=== PATIENT | male | born 2000 | race Two or more races ===

== ENCOUNTER 2020-08-25 22:18 | Emergency (ER) | payer SELFPAY ==
--- NOTE | 2020-08-25 22:50 | EDM.PDOC ---
ED HPI GENERAL MEDICAL PROBLEM - General Chief Complaint: Lower Extremity Injury/Pain Stated Complaint: INJURED LEFT ANKLE Time Seen by Provider: 08/25/20 22:29 Source of Information: Reports: Patient, Significant Other (Girlfriend + child) History Limitations: Reports: No Limitations - History of Present Illness INITIAL COMMENTS - FREE TEXT/NARRATIVE: Mr. Hayes is a very pleasant 19-year-old man who now presents the ED with left ankle pain and swelling. He states that he twisted his left ankle about 2 weeks ago. It got better, but then he twisted it again about 2 days ago, while at work. Since then, he has been treating the ankle with IcyHot and ibuprofen 400 mg po BID. He has not applied ice to the ankle. He complains of pain with ambulation. No prior left ankle injury. Here in the ED, the patient's initial BP is found to be modestly elevated at 157/95, otherwise, he is hemodynamically stable, afebrile, saturating 99% on room air. He appears to be uncomfortable, but in no acute distress. Other than left ankle pain, the patient denies having a recent fever, chills, sore throat, ear pain, nasal or sinus congestion, cough, dyspnea, chest pain, palpitations, nausea, vomiting, constipation, diarrhea, abdominal pain, urinary symptoms, recent weight gain or weight loss, recent bloody bowel movements or black bowel movements, headaches, or rashes. The patient does not have a PCP. Left Ankle Pain Score (Numeric/FACES): 10 - Related Data Allergies Allergy/AdvReac Type Severity Reaction Status Date / Time No Known Allergies Allergy Verified 08/25/20 22:54 Home Meds: Home Meds . [No Known Home Meds] 08/25/20 [History] Past Medical History Endocrine/Metabolic History: Reports: Obesity/BMI 30+ - Past Surgical History GI Surgical History: Reports: Hernia, Inguinal (bilateral, as an ) Male Surgical History: Reports: Circumcision Social & Family History - Tobacco Use Tobacco Use Status *Q: Current Every Day Tobacco User Years of Tobacco use: 3 Packs/Tins Daily: 0.5 Tobacco Use Comment: Started smoking at 16 yrs old - Caffeine Use Caffeine Use: Reports: Coffee - Alcohol Use Alcohol Use History: Yes Alcohol Use Frequency: Socially - Recreational Drug Use Recreational Drug Use: Yes Drug Use in Last 12 Months: No Recreational Drug Type: Reports: Marijuana/Hashish (last smoked 2019) - Living Situation & Occupation Living situation: Reports: Single, with Significant Other (Girlfriend + their 1 child) Occupation: Employed (Water transfer) Review of Systems - Review of Systems Review Of Systems: Comprehensive ROS is negative, except as noted in HPI. ED EXAM, GENERAL - Physical Exam Exam: See Below Exam Limited By: No Limitations General Appearance: Alert, WD/WN, No Apparent Distress Extremities: Other (Generalized swelling about the left ankle, when compared to the right. The patient is most tender to the anterior aspect of his lateral malleolus, although also complains of tenderness across the anterior syndesmosis. He is intolerant to PROM of the left ankle. Neurovascular status of the left lo) Course - Vital Signs Last Recorded V/S: Last Vital Signs Temp 36.2 C 08/25/20 22:32 Pulse 76 08/25/20 22:32 Resp 18 08/25/20 22:32 BP 157/95 H 08/25/20 22:32 Pulse Ox 99 08/25/20 22:32 - Orders/Labs/Meds Orders: Active Orders 24 hr Category Date Time Status Ankle Min 3V Lt [CR] Stat Exams 08/25/20 22:42 Ordered DME for Discharge [COMM] Stat Oth 08/25/20 22:55 Ordered - Re-Assessments/Exams Free Text/Narrative Re-Assessment/Exam: 08/25/20 22:44 As above, the patient twisted his left ankle about 2 weeks ago, it improved, but then he twisted it again while at work about 2 days ago. He presents with generalized pain and swelling to his left ankle, with tenderness primarily to the anterior aspect of his lateral malleolus. He is also intolerant of PROM of the left ankle. I have ordered x-rays to evaluate. 08/25/20 22:55 4-view radiographs of the left ankle appear to be normal, with no fractures or dislocations identified. Formal read per the Radiologist pending. Based on the above, I have ordered a left ankle stirrup splint. 08/25/20 22:58 X-ray results discussed with the patient and his girlfriend. I recommended that he ice and elevate his left ankle as much as possible over the next 2 to 3 days. I will recommend a higher dosage of ibuprofen. He is to wear the stirrup splint for a week, after which time he should come out of it and ambulate on his own. He should expect to have some discomfort at that time, however, if he continues to have pain after 2 weeks, I would like him to follow-up with Dr. Livingston. The patient declined an offer for a note for work. Departure - Departure Time of Disposition: 22:58 Disposition: Home, Self-Care 01 Condition: Good Clinical Impression: Mild sprain of left ankle - Discharge Information *PRESCRIPTION DRUG MONITORING PROGRAM REVIEWED*: Not Applicable *COPY OF PRESCRIPTION DRUG MONITORING REPORT IN PATIENT AL: Not Applicable Referrals: PCP,None [Primary Care Provider] - Lm Livingston MD [Physician] - Forms: ED Department Discharge Additional Instructions: You were seen in the emergency room for left ankle pain after twisting it while at work a couple of days ago. Work-up in the ER included x-rays of your left ankle, which returned normal. No broken bones or dislocations were found. Based on your history, physical exam, and ER x-rays, you appear to have sprained your left ankle. We recommend that you ice and elevate your left ankle as much as possible over the next 2 to 3 days, to help minimize swelling. You may take [id number]-[id number] ibuprofen, 2 to 3 tablets (600-800 mg) up to every 8 hours, with food, as needed for discomfort. You have been placed into a stirrup splint. Put this on every morning, and remove it at bedtime. Continue to wear the splint for 1 week, after which time you should begin walking on your own without it. You should expect to still have some discomfort at that time, however, if you continue to have discomfort after 2 weeks, please follow-up with the Orthopedic Surgeon Dr. Lm Livingston for further evaluation. If any other problems, please do not hesitate to return to the ER. Sepsis Event Note (ED) - Evaluation Sepsis Screening Result: No Definite Risk - Focused Exam Vital Signs: Vital Signs Temp Pulse Resp BP Pulse Ox 08/25/20 22:32 36.2 C 76 18 157/95 H 99 - My Orders Last 24 Hours: My Active Orders 08/25/20 22:42 Ankle Min 3V Lt [CR] Stat 07/08/21 22:55 DME for Discharge [COMM] Stat - Assessment/Plan Last 24 Hours: My Active Orders 08/25/20 22:42 Ankle Min 3V Lt [CR] Stat 08/25/20 22:55 DME for Discharge [COMM] Stat
--- NOTE | 2020-08-26 08:05 | CR ---
Left ankle: 4 views of the left ankle were obtained. Comparison: No previous study. Joint effusion is seen. Diffuse soft tissue swelling is identified. Ankle mortise is symmetric. No acute fracture, dislocation or other bony abnormality is appreciated. Impression: 1. Joint effusion and soft tissue swelling. 2. No acute osseous abnormality is appreciated. Diagnostic code #2
== END 2020-08-25 23:26 | disposition home or self-care (01) ==
LOC: JD.ED 22:18
DX: S93.402A Sprain of unspecified ligament of left ankle, initial encounter (principal); Z72.0 Tobacco use; X50.1XXA Overexertion from prolonged static or awkward postures, initial encounter
CPT/HCPCS: 73610-26-LT; 73610-LT; 99282; 99283-25